=== PATIENT | male | born 1995 | race Caucasian/White ===

== ENCOUNTER 2017-06-23 11:26 | Emergency (ER) | payer BC ==
--- NOTE | 2017-06-23 13:16 | ED ---
Throat Pain/Nasal Congestion - HPI Summary HPI Summary: 21 male presents to ED with complaints of productive cough, congestion, fatigue , chills and sore throat that have been ongoing for the past 4 days however have worsened over the past two days. Is concerned for flu/strep. Believes he did have flu exposure. No flu shot this year. Has been taking dayquil/nyquil with relief. No know fever. No abdominal pain, trouble breathing or vomiting. States productive cough is just phlegm. No other complaints. No PMHx. Took Dayquil around 1030am today. - History of Current Complaint Chief Complaint: EDUpperRespComplaint Time Seen by Provider: 06/23/17 11:36 Hx Obtained From: Patient Onset/Duration: Sudden Onset, Lasting Days, Still Present, Worse Since Severity: Mild Associated Signs And Symptoms: Positive: Dysphagia, Nasal Discharge Cough: Productive - Allergies/Home Medications Allergies/Adverse Reactions: Allergies Allergy/AdvReac Type Severity Reaction Status Date / Time No Known Allergies Allergy Verified 06/23/17 12:18 PMH/Surg Hx/FS Hx/Imm Hx Endocrine/Hematology History: Denies: Hx Anticoagulant Therapy, Hx Diabetes Cardiovascular History: Denies: Hx Hypertension Respiratory History: Denies: Hx Asthma - Surgical History Surgery Procedure, Year, and Place: n/a - Immunization History Immunizations Up to Date: Yes Infectious Disease History: No Infectious Disease History: Denies: Traveled Outside the [place] in Last 30 Days - Family History Known Family History: Positive: None - Social History Alcohol Use: Occasionally Substance Use Type: Reports: None Smoking Status (MU): Never Smoked Tobacco Review of Systems Positive: Chills, Fatigue Positive: Sore Throat, Nasal Discharge Cardiovascular: Negative Positive: Cough Positive: Myalgia All Other Systems Reviewed And Are Negative: Yes Physical Exam Triage Information Reviewed: Yes Vital Signs On Initial Exam: Initial Vitals Temp Pulse Resp BP Pulse Ox 98.5 F 94 18 133/76 99 06/23/17 11:32 06/23/17 11:32 06/23/17 11:32 06/23/17 11:32 06/23/17 11:32 Vital Signs Reviewed: Yes Appearance: Positive: Well-Appearing, No Pain Distress, Well-Nourished Skin: Positive: Warm, Skin Color Reflects Adequate Perfusion, Dry Head/Face: Positive: Normal Head/Face Inspection Eyes: Positive: Conjunctiva Clear ENT: Positive: Hearing grossly normal, Pharyngeal erythema, Nasal congestion, TMs normal, Uvula midline. Negative: Tonsillar swelling, Tonsillar exudate Dental: Positive: Cervical Lymphadenopathy. Negative: Percussion Tenderness @ Neck: Positive: Supple, Nontender Respiratory/Lung Sounds: Positive: Clear to Auscultation, Breath Sounds Present. Negative: Rales, Rhonchi, Wheezes Cardiovascular: Positive: Normal, RRR, Pulses are Symmetrical in both Upper and Lower Extremities Abdomen Description: Positive: Nontender, Soft Bowel Sounds: Positive: Present Musculoskeletal: Positive: Normal, Strength/ROM Intact Neurological: Positive: Normal, Sensory/Motor Intact, Alert, Oriented to Person Place, Time Diagnostics - Vital Signs Vital Signs Temp Pulse Resp BP Pulse Ox 06/23/17 11:32 98.5 F 94 18 133/76 99 - Laboratory Lab Results: Lab Results 06/23/17 Range/Units 12:41 Group A Strep Rapid Negative (Negative) Lab Statement: Any lab studies that have been ordered have been reviewed, and results considered in the medical decision making process. EENT Course/Dx - Course Course Of Treatment: rapid strep and flu obtained and negative. took dayquil prior to arrival. in NAD. appears well and to be suffering from URI. normal vitals. symptomatic measures and follow up. fluids, rest. aware of worsening signs and symptoms to watch out for. No other concerns at this time. - Differential Diagnoses Differential Diagnoses: Influenza, Pharyngitis, URI/Bronchitis - Diagnoses Provider Diagnoses: Upper respiratory infection Discharge - Discharge Plan Condition: Stable Disposition: HOME Patient Education Materials: Upper Respiratory Infection (ED) Referrals: [facility] [Outside] Additional Instructions: Increase fluid intake. Get plenty of rest. Continue dayquil/nyquil for symptoms. Or try mucinex to help break up congestion. Salt water gargles, chloraspetic spray. Follow up with PCP for re-check. Any new or worsening symptoms please seek medical attention promptly.
[2017-06-23 14:17] VITALS: BP 114/70
== END 2017-06-23 14:16 | disposition home or self-care (01) ==
LOC: ED 11:26
DX: J06.9 Acute upper respiratory infection, unspecified (principal)
CPT/HCPCS: 87502; 87651; 99282

== ENCOUNTER 2017-12-08 11:58 | Emergency (ER) | payer BC, OTHER ==
[2017-12-08 12:21] VITALS: BP 136/87
--- NOTE | 2017-12-08 12:34 | UC ---
Truncal Trauma HPI - HPI Summary HPI Summary: 22 yo male presents with left rib pain s/p injury 1 week ago. He tells me that 1 week ago he was trying to give medication to one of his cows when the cow got upset and headbutted him in the left anterior ribs. Since that time pt has had pain in the area - worse with movements and taking a deep breath. He has not taken anything for his pain. Denies SOB, cough, cardiac chest pain, abdominal pain, n/v. - History Of Current Complaint Chief Complaint: UCChestPain Stated Complaint: RIB INJURY Time Seen by Provider: 12/08/17 12:34 Hx Obtained From: Patient Onset/Duration: Sudden Onset Severity Currently: Moderate Pain Intensity: 6 Pain Scale Used: 0-10 Numeric Mechanism Of Injury: Blunt Trauma - Allergies/Home Medications Allergies/Adverse Reactions: Allergies Allergy/AdvReac Type Severity Reaction Status Date / Time No Known Allergies Allergy Verified 12/08/17 12:21 Home Medications: Home Medications NK [No Home Medications Reported] 12/08/17 [History Confirmed 12/08/17] PMH/Surg Hx/FS Hx/Imm Hx - Additional Past Medical History Additional PMH: None Previously Healthy: Yes Other History Of: Negative For: Anticoagulant Therapy - Surgical History Surgical History: None Surgery Procedure, Year, and Place: n/a - Family History Known Family History: Positive: None - Social History Occupation: Employed Full-time Lives: With Family Alcohol Use: Occasionally Substance Use Type: None Smoking Status (MU): Light Every Day Tobacco Smoker Type: Smokeless Tobacco Review of Systems Constitutional: Negative Skin: Negative Respiratory: Negative Cardiovascular: Negative Gastrointestinal: Negative Neurovascular: Negative Musculoskeletal: Other: - Left rib pain Neurological: Negative Psychological: Negative All Other Systems Reviewed And Are Negative: Yes Physical Exam - Summary Physical Exam Summary: GENERAL: NAD. WDWN. No pain distress. SKIN: No rashes, sores, or open wounds. NECK: Supple. Nontender. No lymphadenopathy. CHEST: CTAB. No r/r/w. No accessory muscle use. Breathing comfortably and in no distress. CV: RRR. Without m/r/g. Pulses intact. Brisk cap refill. ABDOMEN: Soft. NTTP. No distention or guarding. No organomegaly. No CVA tenderness. Bowel sounds present MSK: Mild to moderate TTP over left anterior ribs 7-10. NEURO: Alert. CN II-XII grossly intact. PSYCH: Age appropriate behavior. Triage Information Reviewed: Yes Vital Signs: Initial Vital Signs Temp 98.0 F 12/08/17 12:18 Pulse 73 12/08/17 12:18 Resp 12 12/08/17 12:18 BP 136/87 12/08/17 12:18 Pulse Ox 99 12/08/17 12:18 Vital Signs Reviewed: Yes Truncal Trauma Course/Dx - Course Course Of Treatment: XR: Report: No LEFT rib fracture, pulmonary contusion, pleural effusion, or pneumothorax. evident. Clear lungs and pleural spaces. The heart, pulmonary vasculature, and mediastinal. contours are unremarkable. Unremarkable soft tissue contours. Suspect rib contusion. Advised pt to ice area and take ibuprofen q6h prn pain - Differential Dx/Diagnosis Provider Diagnoses: Left rib contusion Discharge - Sign-Out/Discharge Documenting (check all that apply): Patient Departure - Discharge Plan Condition: Stable Disposition: HOME Patient Education Materials: Rib Contusion (ED) Referrals: No Primary Care Phys,NOPCP [Primary Care Provider] - Additional Instructions: If you develop a fever, shortness of breath, chest pain, new or worsening symptoms - please call your PCP or go to the ED. - Billing Disposition and Condition Condition: STABLE Disposition: Home
--- NOTE | 2017-12-08 13:19 | RAD ---
Indication: LEFT lateral rib pain following injury 1.5 weeks ago. Comparison: No relevant prior exams available on the [facility] for comparison. Technique: Dual energy PA chest and 5 view dedicated LEFT rib series. Report: No LEFT rib fracture, pulmonary contusion, pleural effusion, or pneumothorax evident. Clear lungs and pleural spaces. The heart, pulmonary vasculature, and mediastinal contours are unremarkable. Unremarkable soft tissue contours. IMPRESSION: #. Negative exam.
== END 2017-12-08 13:32 | disposition home or self-care (01) ==
LOC: UCEAST 11:58
DX: S20.212A Contusion of left front wall of thorax, initial encounter (principal); W55.22XA Struck by cow, initial encounter; Y93.K9 Activity, other involving animal care; Y92.9 Unspecified place or not applicable; F17.210 Nicotine dependence, cigarettes, uncomplicated
CPT/HCPCS: 99211; G0463

== ENCOUNTER 2018-01-03 11:11 | Emergency (ER) | payer BC, OTHER ==
[2018-01-03 11:20] VITALS: BP 123/82
--- NOTE | 2018-01-03 11:52 | UC ---
Eye Complaint HPI - HPI Summary HPI Summary: 22 y/o male presents to the urgent care c/o right eye irritation w/ possible FB since yesterday. Pt reports he was moving some things yesterday and he felt something got into his eye. Pt has been scratching his eye and irrigated eye w /o any relief. This morning he woke up w/ mild yellowish eye discharge. Mild pain 3/10 when he scratches his eye. Pt denies photophobia, ROBERTO, fever,SOB, chest pain, abdominal pain, N/V/D. - History of Current Complaint Chief Complaint: UCEye Stated Complaint: EYE IRRITATION Time Seen by Provider: 01/03/18 11:41 Hx Obtained From: Patient Onset/Duration: Sudden Onset, Lasting Days - 1 days, Still Present, Worse Since - this morning Timing: Constant Severity Initially: Mild Severity Currently: Mild Pain Intensity: 3 Pain Scale Used: 0-10 Numeric Location of Injury: Conjunctiva - RT eye redness and mild yellowish discharge Character: Foreign Body Sensation Aggravating Factor(s): Blinking Alleviating Factor(s): Nothing Associated Signs And Symptoms: Positive: Drainage (Purulent) - mild yellowish. Negative: Photophobia, Vision Impairment Bilateral, Vision Impairment Right, Vision Impairment Left, Fever, Swelling - Risk Factors Penetrating Injury Risk Factor: Negative Acute Glaucoma Risk Factors: Negative Optic Artery Occlusion Risk Factors: Negative - Allergies/Home Medications Allergies/Adverse Reactions: Allergies Allergy/AdvReac Type Severity Reaction Status Date / Time No Known Allergies Allergy Verified 01/03/18 11:21 PMH/Surg Hx/FS Hx/Imm Hx Previously Healthy: Yes - Pt denies PMHX Other History Of: Negative For: Anticoagulant Therapy - Surgical History Surgical History: Yes Surgery Procedure, Year, and Place: nasal - Family History Known Family History: Positive: Hypertension Family History: Dyslipidemia - Social History Occupation: Student Lives: With Family Alcohol Use: Occasionally Substance Use Type: None Smoking Status (MU): Light Every Day Tobacco Smoker Type: Smokeless Tobacco - Immunization History Hx Tetanus, Diphtheria Vaccination: Yes Review of Systems Constitutional: Negative Skin: Negative Eyes: Drainage - mild yellowish, Eye Redness - RT eye ENT: Negative Respiratory: Negative Cardiovascular: Negative Gastrointestinal: Negative Genitourinary: Negative Motor: Negative Neurovascular: Negative Musculoskeletal: Negative Neurological: Negative Psychological: Negative Is Patient Immunocompromised?: No All Other Systems Reviewed And Are Negative: Yes Physical Exam - Summary Physical Exam Summary: Vital Signs Reviewed: Yes General: Well appearing, well nourished male in no apparent pain distress Eyes: Positive: RT Conjunctiva Inflamed - Visual acuity: WNL,Visual agustin: full to confrontation.PERRLA, EOMI intact w/out limitation or complaint of pain. eyelashes clear. mild tearing and clear drainage observed. No ciliary flush. No chemosis, No photophobia. Normal fundoscopic exam; no proptosis, exophthalmos, nystagmus. No FB observed w/ naked eye. ENT: Positive: Normal ENT inspection, Hearing grossly normal, Pharynx normal, Nasal congestion, Nasal drainage - clear, TMs normal - B/L external ear canal clear , TM's WNL. Negative: Tonsillar swelling, Tonsillar exudate Neck: Positive: Supple, Nontender, No Lymphadenopathy Respiratory: Positive: Chest nontender, Lungs clear, Normal breath sounds, No respiratory distress Cardiovascular: Positive: RRR, No Murmur, Pulses Normal, Brisk Capillary Refill Abdomen Description: Positive: Nontender, No Organomegaly, Soft. Negative: CVA Tenderness (R), CVA Tenderness (L) Bowel Sounds: Positive: Present Musculoskeletal: Positive: Strength Intact, ROM Intact, No Edema Neurological Exam: Normal Psychological Exam: Normal Skin Exam: Normal Triage Information Reviewed: Yes Vital Signs: Initial Vital Signs Temp 97.6 F 01/03/18 11:12 Pulse 66 01/03/18 11:12 Resp 16 01/03/18 11:12 BP 123/82 01/03/18 11:12 Pulse Ox 99 01/03/18 11:12 Eye Complaint Course/Dx - Course Course Of Treatment: 22 y/o male presents to the urgent care c/o right eye irritation w/ possible FB since yesterday. Pt reports he was moving some things yesterday and he felt something got into his eye. Pt has been scratching his eye and irrigated eye w/o any relief. This morning he woke up w/ mild yellowish eye discharge. Mild pain 3/10 when he scratches his eye. Pt denies photophobia, ROBERTO, fever,SOB, chest pain, abdominal pain, N/V/D. Hx obtained. Pt w/ a RT corneal ulcer around 5 o'clock w/o any FB observed on examination. 2 drops of Tetracaine optha drops placed on Pts Rt eye, then irrigated with saline drops to flush any foreign particles, then fluorescein instillation and examination with a UV lamp. Positive corneal ulcer observed at 5 oclock. No foreign body identified. After procedure Pt felt better. Pt Rx Erythromycin ophthalmic ointment and advised to f/u at [facility] [place] in 1-2 days. Pt understood and agreed w/ plan of care. - Differential Dx/Diagnosis Differential Diagnosis/HQI/PQRI: Conjunctivitis, Corneal Abrasion, Foreign Body , Penetrating Injury, Periorbital Cellulitis, Orbital Cellulitis, Uveitis Provider Diagnoses: 1- RT eye FB removal. 2- RT corneal Ulcer Discharge - Sign-Out/Discharge Documenting (check all that apply): Patient Departure All imaging exams completed and their final reports reviewed: No Studies - Discharge Plan Condition: Stable Disposition: HOME Prescriptions: Erythromycin OPTH OINT* [Erythromycin 0.5% OPTH OINT*] 1 applic RIGHT EYE TID # 1 ophth.oint Ibuprofen TAB* [Motrin TAB* 600 MG] 600 mg PO Q6H PRN #30 tab PRN Reason: Pain Patient Education Materials: Corneal Ulcer (ED) Referrals[place] [facility] [place] [place]] - 2 Days Rafiq Loco MD [Medical Doctor] - 1 Day Additional Instructions: 1-Please apply ophthalmic ointment in your RT eye as directed. Please keep your eye cover for 1 day for comfort,.Avoid rubbing your eye. 2- Take Ibuprofen PO q6-8hrs as directed to alleviate symptoms of pain and swelling 3-Please f/u w/ want ad receiver Dr Loco in 1-2 days for further evaluation and treatment in your Corneal Ulcer - Billing Disposition and Condition Condition: STABLE Disposition: Home
[2018-01-03] MEDS ORDERED: Eye Irrigation Solution 30 ML BOTTLE BOTH EYES ONE (12:06)
[2018-01-03] MEDS ORDERED: Fluorescein Sod TOPICAL 0.6* 0.6 MG TEST OPHTHALMIC ONE (12:07)
[2018-01-03] MEDS ORDERED: Tetracaine 0.5% OPTH.SOL 4 ML* 1 DROP BTL RIGHT EYE ONE (12:08)
== END 2018-01-03 13:10 | disposition home or self-care (01) ==
LOC: UCEAST 11:11
DX: T15.91XA Foreign body on external eye, part unspecified, right eye, initial encounter (principal); H16.001 Unspecified corneal ulcer, right eye; F17.290 Nicotine dependence, other tobacco product, uncomplicated; X58.XXXA Exposure to other specified factors, initial encounter; Y92.9 Unspecified place or not applicable
CPT/HCPCS: 99212; A9270-GY; G0463

== ENCOUNTER 2019-08-16 15:08 | Emergency (ER) | payer BC ==
--- NOTE | 2019-08-16 15:18 | UC ---
Hand/Wrist HPI - HPI Summary HPI Summary: 24 yo male presents with RIGHT middle finger injury. He tells me that yesterday around 1100 he was closing his garage door and "squished" his right middle finger between the door and a piece of wood. Sustained a small laceration to the volar aspect of his finger. He cleansed the area and applied a band-aid. Today at work he had pain to the area - prompting his visit to this evening. Unsure date of last tetanus. - History Of Current Complaint Stated Complaint: FINGER INJURY Hx Obtained From: Patient Onset/Duration: Sudden Onset Severity Initially: Mild Severity Currently: Mild Pain Intensity: 3 Pain Scale Used: 0-10 Numeric - Allergies/Home Medications Allergies/Adverse Reactions: Allergies Allergy/AdvReac Type Severity Reaction Status Date / Time No Known Allergies Allergy Verified 08/16/19 15:39 Home Medications: Home Medications Cephalexin CAP* [Keflex CAP*] 500 mg PO TID 7 Days #21 cap 08/16/19 [Rx] PMH/Surg Hx/FS Hx/Imm Hx - Additional Past Medical History Additional PMH: None Other History Of: Negative For: Anticoagulant Therapy - Surgical History Surgical History: Yes Surgery Procedure, Year, and Place: nasal - Family History Known Family History: Positive: Hypertension Family History: Dyslipidemia - Social History Lives: With Family Alcohol Use: Occasionally Substance Use Type: None Smoking Status (MU): Light Every Day Tobacco Smoker Type: Smokeless Tobacco - Immunization History Hx Tetanus, Diphtheria Vaccination: Yes Review of Systems All Other Systems Reviewed And Are Negative: No Constitutional: Positive: Negative Skin: Positive: Other - Finger laceration Respiratory: Positive: Negative Cardiovascular: Positive: Negative Neurovascular: Positive: Negative Musculoskeletal: Positive: Negative Neurological/Mental Status: Positive: Negative Psychological: Positive: Negative Physical Exam - Summary Physical Exam Summary: GENERAL: NAD. WDWN. No pain distress. SKIN: RIGHT MIDDLE FINGER: Volar aspect overlying PIP with 0.8cm flap-like laceration just through the dermis. Mild visualization of flexor tendon (1-2mm area within deepest aspect of laceration) - appears intact without fraying. NECK: Supple. Nontender. No lymphadenopathy. CHEST: No accessory muscle use. Breathing comfortably and in no distress. CV: Pulses intact. Cap refill <2seconds MSK: RIGHT MIDDLE FINGER: FROM. Strength intact extension and flexion at MCP, PIP, and DIP. NEURO: Alert. PSYCH: Age appropriate behavior. Triage Information Reviewed: Yes Vital Signs: Vital Signs: Temp Pulse Resp BP Pulse Ox 98.6 F 76 18 131/73 98 08/16/19 15:40 08/16/19 15:40 08/16/19 15:40 08/16/19 15:40 08/16/19 15:40 Vital Signs Reviewed: Yes Diagnostics - Radiology Finger XR Radiology Interpretation Completed By: Radiologist Summary of Radiographic Findings: IMPRESSION: SOFT TISSUE SWELLING. NO ACUTE OSSEOUS INJURY. IF SYMPTOMS PERSIST, RECOMMEND REPEAT IMAGING. Hand/Wrist Course/Dx - Course Course Of Treatment: XR negative for fracture. tdap updated today. The wound was irrigated with saline. Given >24hours since laceration occurred - not amenable to primary closure today. The flap was approximated loosely and band-aid applied. Finger splint given to use for the next few days to discourage flexion of PIP to allowing healing. Will place him on keflex for prophylactic infection. Advised recheck if fever, redness, drainage, increased pain/swelling, decreased ROM. - Differential Dx/Diagnosis Provider Diagnosis: Finger laceration Discharge ED - Sign-Out/Discharge Documenting (check all that apply): Patient Departure All imaging exams completed and their final reports reviewed: Yes - Discharge Plan Condition: Stable Disposition: HOME Prescriptions: Cephalexin CAP* [Keflex CAP*] 500 mg PO TID 7 Days #21 cap Patient Education Materials: Finger Laceration (ED) Referrals: No Primary Care Phys,NOPCP [Primary Care Provider] - Additional Instructions: If you develop a fever, shortness of breath, chest pain, new or worsening symptoms - please call your PCP or go to the ED immediately. X-ray is normal today. Change the band-aid daily Use the finger splint for the next 2-3 days to allow area to heal Take antibiotic as prescribed. If you notice a fever, redness, drainage, streaking, or increasing pain/ swelling please be rechecked immediately - Billing Disposition and Condition Condition: STABLE Disposition: Home
[2019-08-16] MEDS ORDERED: Tetan/Diph/Pertus SYR(Tdap)* 0.5 ML SYR(BOOSTRIX) use SYR contains LATEX IM ONE (15:28)
[2019-08-16 15:44] VITALS: BP 131/73
== END 2019-08-16 16:25 | disposition home or self-care (01) ==
LOC: UCEAST 15:08
DX: S61.212A Laceration without foreign body of right middle finger without damage to nail, initial encounter (principal); W23.0XXA Caught, crushed, jammed, or pinched between moving objects, initial encounter; Y92.9 Unspecified place or not applicable; Z23 Encounter for immunization; F17.290 Nicotine dependence, other tobacco product, uncomplicated
CPT/HCPCS: 73140; 90471; 90715; 99213; G0463